=== PATIENT | male | born 1965 | race Caucasian/White ===

== ENCOUNTER 2016-12-07 10:19 | Outpatient (CLI) | payer OTHER ==
[~2016-12-07] VITALS: Ht 180.3 cm; Wt 143.6 kg
[2016-12-07 10:44] VITALS: BP 116/56; PULSE 77; RESP 20; Ht 180.3 cm; Wt 143.6 kg
[2016-12-07] MEDS ORDERED: ARIP10TA13 PO (10:44)
[2016-12-07] MEDS ORDERED: MIRT15TA5 PO (10:44)
[2016-12-07] MEDS ORDERED: LACT20SO2 PO (10:44)
[2016-12-07] MEDS ORDERED: LEVE-5 PO (10:44)
[2016-12-07] MEDS ORDERED: METH10SO PO (10:44)
[2016-12-07] MEDS ORDERED: FURO20TA3 PO (10:44)
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
== END 2016-12-07 15:52 | disposition home or self-care (01) ==
LOC: HPC 10:19
PROVIDERS: ATTEND Transplant Surgery
DX: C22.0 Liver cell carcinoma (principal); B19.20 Unspecified viral hepatitis C without hepatic coma; K74.60 Unspecified cirrhosis of liver; D69.6 Thrombocytopenia, unspecified; G40.909 Epilepsy, unspecified, not intractable, without status epilepticus; F32.9 Major depressive disorder, single episode, unspecified; G89.29 Other chronic pain
CPT/HCPCS: G0463